=== PATIENT | male | born 1975 | race Caucasian/White ===

== ENCOUNTER 2016-09-07 16:16 | Emergency (ER) | payer SELFPAY ==
[~2016-09-07] VITALS: Ht 177.8 cm; Wt 93.8 kg
[~2016-09-07 16:16] MED LIST: IBUP-238 PO
[2016-09-07 16:19] VITALS: BP 151/98; PULSE 66; RESP 16; TEMP 97.9; O2SAT 98
--- NOTE | 2016-09-07 16:47 | PD ---
HPI Chief Complaint: Musculoskeletal Complaint Time Seen by Provider: 16:40 Travel History International Travel<30 days: No Contact w/Intl Traveler<30days: No Traveled to known affect area: No History of Present Illness HPI 41-year-old male presents to the emergency room for evaluation of left knee pain for the past 10 days. Patient states he woke up with the pain. He denies any trauma or injury. States he twists a lot at work and may have injured it that way. Pain is worsened with ambulation and certain range of motion. Localized to the medial and proximal aspect of the knee without radiation. He has been taking ibuprofen and tramadol without significant relief in symptoms. He started using a knee brace yesterday but is unsure if he is using it properly. He denies paresthesias. History Social History Alcohol Use: Yes (SOCIALLY) Tobacco Use: Yes (1/2 PPD) Allergies-Medications (Allergen,Severity, Reaction): Coded Allergies: No Known Allergies (Unverified , 09/07/16) Reported Meds & Prescriptions Reported Meds & Active Scripts Active Motrin (Ibuprofen) 800 Mg Tab 800 Mg PO TID Review of Systems Except as stated in HPI: all other systems reviewed are Neg Physical Exam Narrative GENERAL: Well-nourished, well-developed male in no acute distress. Afebrile. Ambulatory. SKIN: Focused skin assessment warm/dry. No erythema or ecchymosis. HEAD: Normocephalic. EYES: No scleral icterus. No injection or drainage. NECK: Supple, trachea midline. No JVD or lymphadenopathy. CARDIOVASCULAR: Regular rate and rhythm without murmurs, gallops, or rubs. RESPIRATORY: Breath sounds equal bilaterally. No accessory muscle use. EXTREMITY: Left knee moderately tender to palpation at the medial aspect. Full range of motion. Very mild edema of the proximal knee. 2+ dorsalis pedis pulse. No tenderness to palpation of the patella or fibular head. Data Data Last Documented VS Vital Signs Date Time Temp Pulse Resp B/P Pulse Ox O2 Delivery O2 Flow Rate FiO2 09/07/16 16:19 97.9 66 16 151/98 98 MDM Medical Screen Exam Complete: Yes Emergency Medical Condition: No Differential Diagnosis Knee strain Narrative Course 41-year-old male presents to the emergency room for evaluation of left knee pain for the past 10 days without trauma or injury. Physical exam reveals mild edema of the left medial knee. Left lower extremity is neurologically intact with 2+ dorsalis pedis pulse. [place] knee rule excludes need for imaging at this time. Patient was told that he likely has internal derangement and should follow-up the primary care physician for outpatient MRI. There are no urgent or emergent medical conditions this time. A medical screening exam was performed: At the time of evaluation the presenting medical condition was determined not to be of an emergent nature. The patient was given the option of receiving additional care, but declined. Patient was given options for additional community resources from which to obtain care. The Patient Has Been advised to seek medical attention for their presenting complaint. The patient has been advised to return to the ER at any time if an emergent condition develops. Primary Impression: Encounter for medical screening examination Disposition: 01 DISCHARGE HOME Condition: Stable Nicole Ely Sep 07, 2016 16:47
== END 2016-09-07 16:45 | disposition left against medical advice (07) ==
LOC: PHEFT 16:16
DX: M25.562 Pain in left knee (principal)
CPT/HCPCS: 99281